=== PATIENT | male | born 1950 | race American Indian/Alaskan Native ===

== ENCOUNTER 2018-11-17 18:23 | Emergency (ER) | payer MEDICAID, MEDICARE ==
[2018-11-17 18:52] VITALS: BP 140/85
--- NOTE | 2018-11-17 19:08 | Emergency Department Report ---
ED General Adult HPI - General Chief complaint: Medical Clearance Stated complaint: MEDICAL CLEARANCE Time Seen by Provider: 11/17/18 18:46 Source: EMS Mode of arrival: Stretcher Limitations: Physical Limitation - History of Present Illness Initial comments: 68 yo M sent from [facility] because pt became angry with staff that they would not let him go outside. NH states pt threw himself out of his wheelchair in protest. Pt states he slid down out of the chair. Denies any injuries. Has no complaints. NH paperwork states pt is altered, however, EMS states pt has been A&O x 3 since they arrived to pick him up. -: This evening Associated Symptoms: denies other symptoms Treatments Prior to Arrival: none - Related Data Allergies Allergy/AdvReac Type Severity Reaction Status Date / Time No Known Allergies Allergy Unverified 05/21/18 18:30 ED Review of Systems ROS: Stated complaint: MEDICAL CLEARANCE Other details as noted in HPI Comment: All other systems reviewed and negative Respiratory: denies: shortness of breath Cardiovascular: denies: chest pain Gastrointestinal: denies: abdominal pain Musculoskeletal: denies: arthralgia Neurological: denies: headache ED Past Medical Hx - Past Medical History Previous Medical History?: Yes Hx Psychiatric Treatment: Yes (Bipolar) Additional medical history: Cirrhosis of liver, BPH, Psoriasis, Vitamin deficiency, ototo - Social History Smoking Status: Never Smoker Substance Use Type: None ED Physical Exam - General Limitations: Physical Limitation General appearance: alert, in no apparent distress - Head Head exam: Present: atraumatic, normocephalic - Eye Eye exam: Present: normal appearance - ENT ENT exam: Present: mucous membranes moist - Neck Neck exam: Present: normal inspection - Respiratory Respiratory exam: Present: normal lung sounds bilaterally. Absent: respiratory distress - Cardiovascular Cardiovascular Exam: Present: regular rate, normal rhythm - GI/Abdominal GI/Abdominal exam: Present: soft. Absent: distended, tenderness - Extremities Exam Extremities exam: Present: normal inspection - Neurological Exam Neurological exam: Present: alert, oriented X3. Absent: CN II-XII intact - Psychiatric Psychiatric exam: Present: normal affect, normal mood - Skin Skin exam: Present: warm, dry, intact, normal color ED Course Vital Signs 11/17/18 18:51 Temperature 97.8 F Pulse Rate 99 H Respiratory 16 Rate Blood Pressure 140/85 [Left] O2 Sat by Pulse 98 Oximetry ED Medical Decision Making - Medical Decision Making 68 yo M sent from [facility] because he became upset when staff would not allow him to go outside. Pt states he just wanted to enjoy the sunshine but they told him that it was too hot. Pt stated he grew up in [place] and is accustomed to hot weather. When EMS arrived, pt was sitting outside, calm, not altered, however, staff still wanted him transported to the ED. Pt has no complaints. He was given a food tray and has been very cooperative and conversational here in ED. No medical emergency present. Will d/c back to [facility]. Critical care attestation.: If time is entered above; I have spent that time in minutes in the direct care of this critically ill patient, excluding procedure time. ED Disposition Clinical Impression: No problem, feared complaint unfounded Disposition: DC-01 TO HOME OR SELFCARE Is pt being admited?: No Condition: Stable Referrals: DANIEL REEVES MD [Referring] - 3-5 Days Time of Disposition: 20:19
== END 2018-11-17 22:27 | disposition home or self-care (01) ==
LOC: ED 18:23
DX: F91.1 Conduct disorder, childhood-onset type (principal)
CPT/HCPCS: 99282

== ENCOUNTER 2019-01-07 21:04 | Emergency (ER) | payer MEDICAID ==
[2019-01-07] MEDS ORDERED: MAXIPIME/NS 2 GM/100 ML 2 GM/100 ML BAG IV ONE (22:16)
[2019-01-07] MEDS ORDERED: NACL 0.9% 1000 ML IV ONE (22:16)
[2019-01-07 23:04] LABS: Basophils % (Auto) 0.2 % (0.0-1.8); Eosinophils # (Auto) 0.1 K/mm3 (0.0-0.4); Eosinophils % (Auto) 0.9 % (0.0-4.3); Hematocrit 34.1 % (35.5-45.6); Hemoglobin 11.2 gm/dl (11.8-15.2); Lymphocytes # (Auto) 1.6 K/mm3 (1.2-5.4); Lymphocytes % (Auto) 21.1 % (13.4-35.0); Mean Corpuscular HGB Conc 33 % (32-34); Mean Corpuscular Volume 81 fl (84-94); Monocytes # (Auto) 1.2 K/mm3 (0.0-0.8); Platelet Count 160 K/mm3 (140-440); Red Blood Count 4.19 M/mm3 (3.65-5.03); Red Cell Distribution Width 14.6 % (13.2-15.2)
[2019-01-07 23:21] LABS: Alanine Aminotransferase 11 units/L (7-56); Albumin 3.5 g/dL (3.9-5); BUN/Creatinine Ratio 20; Blood Urea Nitrogen 24 mg/dL (9-20); Calcium 9.4 mg/dL (8.4-10.2); Hemolysis Index 0
--- NOTE | 2019-01-07 23:42 | XRay Report ---
CHEST 1 VIEW INDICATION / CLINICAL INFORMATION: labored breathing. COMPARISON: None available. FINDINGS: SUPPORT DEVICES: None. HEART / MEDIASTINUM: Heart size is normal with left ventricular configuration. LUNGS / PLEURA: No significant pulmonary or pleural abnormality. No pneumothorax. ADDITIONAL FINDINGS: Calcified granulomata are demonstrated in both lungs and ken. IMPRESSION: 1. No acute findings. Signer Name: Moncho Fitch MD Signed: 01/07/2019 11:38 PM Workstation Name: [id number]
--- NOTE | 2019-01-07 23:48 | Emergency Department Report ---
ED General Adult HPI - General Chief complaint: Fever Stated complaint: LETHARGIC Time Seen by Provider: 01/07/19 22:12 Source: EMS Mode of arrival: Stretcher Limitations: No Limitations - History of Present Illness Initial comments: Patient is a 68-year-old male who is presented from [facility] with some lethargy fever late breathing. Patient's denies any cough congestion or pain. Associated Symptoms: diaphoresis, fever/chills. denies: confusion, chest pain, cough, headaches, loss of appetite, malaise, nausea/vomiting, rash, seizure, shortness of breath, syncope - Related Data Previous Rx's Medication Instructions Recorded Last Taken Type levoFLOXacin [Levaquin TAB] 500 mg PO QDAY #10 tablet 01/08/19 Unknown Rx Allergies Allergy/AdvReac Type Severity Reaction Status Date / Time No Known Allergies Allergy Unverified 05/21/18 18:30 ED Review of Systems ROS: Stated complaint: LETHARGIC Other details as noted in HPI Comment: All other systems reviewed and negative ED Past Medical Hx - Past Medical History Previous Medical History?: Yes Hx Psychiatric Treatment: Yes (Bipolar) Additional medical history: Cirrhosis of liver, BPH, Psoriasis, Vitamin deficiency, ototo - Social History Smoking Status: Never Smoker Substance Use Type: None - Medications Home Medications: Home Medications Medication Instructions Recorded Confirmed Last Taken Type levoFLOXacin [Levaquin TAB] 500 mg PO QDAY #10 tablet 01/08/19 Unknown Rx ED Physical Exam - General Limitations: No Limitations General appearance: alert, in no apparent distress - Head Head exam: Present: atraumatic, normocephalic - Eye Eye exam: Present: normal appearance - ENT ENT exam: Present: mucous membranes moist - Neck Neck exam: Present: normal inspection - Respiratory Respiratory exam: Present: normal lung sounds bilaterally. Absent: respiratory distress, wheezes, rales, rhonchi - Cardiovascular Cardiovascular Exam: Present: regular rate, normal rhythm, normal heart sounds. Absent: systolic murmur, diastolic murmur, rubs, gallop - GI/Abdominal GI/Abdominal exam: Present: soft, normal bowel sounds. Absent: distended, tenderness, rebound - Rectal Rectal exam: Present: deferred - Extremities Exam Extremities exam: Present: normal inspection - Back Exam Back exam: Present: normal inspection - Neurological Exam Neurological exam: Present: alert, oriented X3 - Psychiatric Psychiatric exam: Present: normal affect, normal mood - Skin Skin exam: Present: warm, dry, intact, normal color. Absent: rash ED Course Vital Signs 01/07/19 01/07/19 01/07/19 22:03 22:16 22:30 Temperature 101.3 F H Pulse Rate 110 H 110 H Respiratory 25 H 23 Rate Blood Pressure 128/68 120/78 Blood Pressure 128/68 [Left] O2 Sat by Pulse 98 99 98 Oximetry 01/07/19 01/07/19 01/07/19 22:46 23:16 23:46 Temperature Pulse Rate 103 H 111 H 111 H Respiratory 18 26 H 17 Rate Blood Pressure 120/78 136/97 136/97 Blood Pressure [Left] O2 Sat by Pulse 100 98 100 Oximetry 01/08/19 01/08/19 01/08/19 00:00 00:16 00:46 Temperature Pulse Rate 113 H 110 H Respiratory 23 22 22 Rate Blood Pressure 145/77 145/77 145/77 Blood Pressure [Left] O2 Sat by Pulse 99 95 99 Oximetry 01/08/19 01/08/19 01/08/19 01:00 01:30 01:46 Temperature Pulse Rate 109 H 110 H 108 H Respiratory 19 19 19 Rate Blood Pressure 144/83 128/77 144/83 Blood Pressure [Left] O2 Sat by Pulse 93 98 98 Oximetry 01/08/19 02:16 Temperature Pulse Rate 108 H Respiratory 22 Rate Blood Pressure 156/85 Blood Pressure [Left] O2 Sat by Pulse 99 Oximetry ED Medical Decision Making - Lab Data Result diagrams: 01/07/19 22:43 01/07/19 22:43 Lab Results 01/07/19 01/07/19 01/07/19 Range/Units 22:43 22:43 22:43 WBC 7.3 (4.5-11.0) K/mm3 RBC 4.19 (3.65-5.03) M/mm3 Hgb 11.2 L (11.8-15.2) gm/dl Hct 34.1 L (35.5-45.6) % MCV 81 L (84-94) fl MCH 27 L (28-32) pg MCHC 33 (32-34) % RDW 14.6 (13.2-15.2) % Plt Count 160 (140-440) K/mm3 Lymph % (Auto) 21.1 (13.4-35.0) % [place] % (Auto) 16.0 H (0.0-7.3) % Eos % (Auto) 0.9 (0.0-4.3) % Baso % (Auto) 0.2 (0.0-1.8) % Lymph # 1.6 (1.2-5.4) K/mm3 [place] # 1.2 H (0.0-0.8) K/mm3 Eos # 0.1 (0.0-0.4) K/mm3 Baso # 0.0 (0.0-0.1) K/mm3 Seg Neutrophils % 61.8 (40.0-70.0) % Seg Neutrophils # 4.5 (1.8-7.7) K/mm3 Sodium 141 (137-145) mmol/L Potassium 4.4 (3.6-5.0) mmol/L Chloride 107.3 H (98-107) mmol/L Carbon Dioxide 25 (22-30) mmol/L Anion Gap 13 mmol/L BUN 24 H (9-20) mg/dL Creatinine 1.2 (0.8-1.5) mg/dL Estimated GFR > 60 ml/min BUN/Creatinine Ratio 20 % Glucose 106 H (75-100) mg/dL Lactic Acid 0.90 (0.7-2.0) mmol/L Calcium 9.4 (8.4-10.2) mg/dL Total Bilirubin 0.20 (0.1-1.2) mg/dL AST 17 (5-40) units/L ALT 11 (7-56) units/L Alkaline Phosphatase 87 (35-129) units/L Total Protein 8.9 H (6.3-8.2) g/dL Albumin 3.5 L (3.9-5) g/dL Albumin/Globulin Ratio 0.6 % Urine Color (Yellow) Urine Turbidity (Clear) Urine pH (5.0-7.0) Ur Specific S[place] (1.003-1.030) Urine Protein (Negative) mg/dL Urine Glucose (UA) (Negative) mg/dL Urine Ketones (Negative) mg/dL Urine Blood (Negative) Urine Nitrite (Negative) Urine Bilirubin (Negative) Urine Urobilinogen (<2.0) mg/dL Ur Leukocyte Esterase (Negative) Urine WBC (Auto) (0.0-6.0) /HPF Urine RBC (Auto) (0.0-6.0) /HPF U Epithel Cells (Auto) (0-13.0) /HPF Urine WBC Clumps /HPF 01/08/19 01/08/19 Range/Units 00:34 01:24 WBC (4.5-11.0) K/mm3 RBC (3.65-5.03) M/mm3 Hgb (11.8-15.2) gm/dl Hct (35.5-45.6) % MCV (84-94) fl MCH (28-32) pg MCHC (32-34) % RDW (13.2-15.2) % Plt Count (140-440) K/mm3 Lymph % (Auto) (13.4-35.0) % [place] % (Auto) (0.0-7.3) % Eos % (Auto) (0.0-4.3) % Baso % (Auto) (0.0-1.8) % Lymph # (1.2-5.4) K/mm3 [place] # (0.0-0.8) K/mm3 Eos # (0.0-0.4) K/mm3 Baso # (0.0-0.1) K/mm3 Seg Neutrophils % (40.0-70.0) % Seg Neutrophils # (1.8-7.7) K/mm3 Sodium (137-145) mmol/L Potassium (3.6-5.0) mmol/L Chloride (98-107) mmol/L Carbon Dioxide (22-30) mmol/L Anion Gap mmol/L BUN (9-20) mg/dL Creatinine (0.8-1.5) mg/dL Estimated GFR ml/min BUN/Creatinine Ratio % Glucose (75-100) mg/dL Lactic Acid 0.80 (0.7-2.0) mmol/L Calcium (8.4-10.2) mg/dL Total Bilirubin (0.1-1.2) mg/dL AST (5-40) units/L ALT (7-56) units/L Alkaline Phosphatase (35-129) units/L Total Protein (6.3-8.2) g/dL Albumin (3.9-5) g/dL Albumin/Globulin Ratio % Urine Color Yellow (Yellow) Urine Turbidity Cloudy (Clear) Urine pH 7.0 (5.0-7.0) Ur Specific Satin 1.008 (1.003-1.030) Urine Protein <15 mg/dl (Negative) mg/dL Urine Glucose (UA) Neg (Negative) mg/dL Urine Ketones Neg (Negative) mg/dL Urine Blood Mod (Negative) Urine Nitrite Neg (Negative) Urine Bilirubin Neg (Negative) Urine Urobilinogen < 2.0 (<2.0) mg/dL Ur Leukocyte Esterase Lg (Negative) Urine WBC (Auto) < 1.0 (0.0-6.0) /HPF Urine RBC (Auto) 20.0 (0.0-6.0) /HPF U Epithel Cells (Auto) 1.0 (0-13.0) /HPF Urine WBC Clumps 3+ /HPF - Radiology Data [facility] [address] [place] [address] XRay Report Signed Patient: ISAAC BASS MR#: [id number] 9 : 1950 Acct:[id number] Age/Sex: 68 / M ADM Date: 01/07/19 Loc: ED Attending Dr: Ordering Physician: RYLIE JURADO MD Date of Service: 01/07/19 Procedure(s): XR chest 1V ap Accession Number(s): [id number] cc: RYLIE JURADO MD Fluoro Time In Minutes: CHEST 1 VIEW INDICATION / CLINICAL INFORMATION: labored breathing. COMPARISON: None available. FINDINGS: SUPPORT DEVICES: None. HEART / MEDIASTINUM: Heart size is normal with left ventricular configuration. LUNGS / PLEURA: No significant pulmonary or pleural abnormality. No pneumothorax. ADDITIONAL FINDINGS: Calcified granulomata are demonstrated in both lungs and ken. IMPRESSION: 1. No acute findings. Signer Name: Moncho Fitch MD Signed: 01/07/2019 11:38 PM Workstation Name: [id number] Transcribed By: ARYAN Dictated By: Moncho Fitch MD Electronically Authenticated By: Moncho Fitch MD Signed Date/Time: 01/07/192337 DD/ 36 TD/TT: - Medical Decision Making Patient's does show evidence of UTI on his urinalysis. Patient to be started on Levaquin and discharged. Patient after fever was treated is much more energetic and states he would like to be discharged. Critical care attestation.: If time is entered above; I have spent that time in minutes in the direct care of this critically ill patient, excluding procedure time. ED Disposition Clinical Impression: UTI (urinary tract infection) Qualifiers: Urinary tract infection type: acute cystitis Hematuria presence: without hematuria Qualified Code(s): N30.00 - Acute cystitis without hematuria Disposition: TO HOME OR SELFCARE Is pt being admited?: No Does the pt Need Aspirin: No Condition: Stable Instructions: Urinary Tract Infection in Men (ED) Referrals: DANIEL REEVES MD [Primary Care Provider] - 3-5 Days Time of Disposition: 02:43
[2019-01-08 01:34] LABS: Bilirubin,Urine NEG (Negative); Blood,Urine MOD (Negative); Color,Urine Yellow (Yellow); Protein,Urine <15 mg/dL mg/dL (Negative); Urobilinogen,Urine < 2.0 mg/dL (<2.0)
[2019-01-08 01:36] LABS: WBC,Urine < 1.0 /HPF (0.0-6.0)
[2019-01-08] MEDS ORDERED: LEVAQUIN PO ONE (02:10)
[2019-01-08 10:28] VITALS: BP 145/84
== END 2019-01-08 10:55 | disposition home or self-care (01) ==
LOC: ED 21:04
DX: N39.0 Urinary tract infection, site not specified (principal); F31.9 Bipolar disorder, unspecified; Z98.890 Other specified postprocedural states; Z79.899 Other long term (current) drug therapy
CPT/HCPCS: 36415; 71045; 80053; 81001; 82140; 85025; 87040; 96365; 99284; J0692; J7030

== ENCOUNTER 2019-02-24 17:46 | Inpatient (IN) | payer MEDICARE ==
[2019-02-25] MEDS: MACROBID PO SCH ×3 (01:38→22:36)
[2019-02-25] MEDS: MELATONIN PO SCH ×2 (01:39→22:00)
[2019-02-25] MEDS: LEVAQUIN PO SCH (10:04)
--- NOTE | 2019-02-25 12:33 | History and Physical Report ---
GP History & Physical - History of Present Illness Date of admission: 02/24/19 Reason for Admission: Danger to others, Unable to care for self Chief Complaint: I don't know why I am here History of Present Illness: The patient is a 69-year-old AAM with history of Bipolar disorder, Vascular dementia and multiple medical problems including chronic pain, history of stroke and ?cirrhosis. He was admitted via our ED from [facility] for evaluation and treatment of aggressive behavior. The skilled nursing staff reports that he has been making lewd and sexually explicit comments while at the skilled nursing. He is irritable this morning, refusing to take the antibiotics that was started yesterday for UTI. He reports that his mood is ok, denies SI/HI/AVH Legal Status: Voluntary Patient Problems: Current Active Problems Delirium due to another medical condition (Acute) Dementia with behavioral disturbance (Acute) Reaction to Hospitalization: Accepting Substance History - Substance History Drug Use: none Hx Tobacco Use: No Alcohol Use: No Past psychiatric history - Past Medical History Past Medical History: CAD, liver disease - past Psychiatric treatment and history Psych: Bipolar - Social History Social history: single (Lives in a NH, disabled, has GED. No legal prblems nad no access to guns) Review of Systems All systems: negative Psychiatric: irritability Results - Results Labs/Vitals: Last Vital Signs Temp 98.3 F 02/24/19 23:12 Pulse 114 H 02/24/19 23:13 Resp 16 02/24/19 23:12 BP 135/84 02/24/19 23:12 Pulse Ox 99 02/24/19 23:13 Physical Examination - Constitutional Vitals: Vital Signs Temp Pulse Resp BP Pulse Ox 98.3 F 114 H 16 135/84 99 02/24/19 23:12 02/24/19 23:13 02/24/19 23:12 02/24/19 23:12 02/24/19 23:13 Temperature -Last 24 Hours Temperature 98.3 F General appearance: Present: no acute distress - EENT Eyes: Present: PERRL, EOM intact ENT: hearing intact, clear oral mucosa - Neck Neck: Present: supple, normal ROM - Respiratory Respiratory effort: normal Mental Status Exam - Vital signs Last Vital Signs Temp 98.3 F 02/24/19 23:12 Pulse 114 H 02/24/19 23:13 Resp 16 02/24/19 23:12 BP 135/84 02/24/19 23:12 Pulse Ox 99 02/24/19 23:13 - Exam Orientation: time, place, person Affect: normal Mood: congruent with affect Thought Process: Intact Perceptions: none Speech: normal rate and pattern Concentration: focused Motor activity: normal Level of consciousness: alert Memory: Intact Interaction: irritable Mini mental status exam(if necessary): 24-30 Assessment and Plan - Psychiatric problem (1) Delirium due to another medical condition Current Visit: Yes Status: Acute plan to address problem: Due to the psychiatric conditions and required monitoring - the patient requires continued hospitalization. Will continue inpatient treatment to allow for medication adjustment and monitoring. Will continue q15 min safety checks. Will encourage the use of environmental modifications and non-pharmacologic approaches for the management of behavioral and psychological symptoms. Will continue current psych medications Monitor for medication side effects. The patient will continue on medications for physical illnesses, and these will be closely monitored by the Hospitalist Continue intensive physical and occupational therapies. Monitor patient's mood, sleep, appetite, and behavior closely. Encourage patient to participate in individual and group therapeutic sessions on the [place]. Will provide a safe and therapeutic environment for patient.. Estimated length of stay 5 - 7 days (2) Aggressive behavior Current Visit: No Status: Acute (3) Pyuria Current Visit: No Status: Acute (4) Dementia with behavioral disturbance Current Visit: Yes Status: Acute Physician Certification - Certification Statement Physician Certification Statement: This is an acknowledgement statement that ISAAC BASS is a 69 year old M who requires inpatient psychiatric admission for treatment which could reasonably be expected to improve the patient's condition for Dementia with delirium, Dementia with behavioral disturbance Estimated period of time patient will need to remain in the hospital: 7 days Plan for post-hospital care: out-patient care
[2019-02-26 07:52] LABS: Chol/HDL Ratio 2.36 %
[2019-02-26] MEDS: LEVAQUIN PO SCH (09:28)
[2019-02-26] MEDS: MACROBID PO SCH ×2 (09:28→21:03)
--- NOTE | 2019-02-26 15:02 | Consultation ---
History of Present Illness - Reason for Consult Consult date: 02/26/19 - History of Present Illness The patient is a 69-year-old AAM with history of Bipolar disorder, Vascular dementia and multiple medical problems including chronic pain, history of stroke and ?cirrhosis. He was admitted via our ED from [facility] for evaluation and treatment of aggressive behavior. The shelter staff reports that he has been making lewd and sexually explicit comments while at the shelter. Patient was noted to have a UTI we'll start antibiotics. Past History Past Medical History: CAD, liver disease Social history: single (Lives in a NH, disabled, has GED. No legal prblems nad no access to guns) Medications and Allergies Allergies Allergy/AdvReac Type Severity Reaction Status Date / Time No Known Allergies Allergy Unverified 05/21/18 18:30 Home Medications Medication Instructions Recorded Confirmed Last Taken Type levoFLOXacin [Levaquin TAB] 500 mg PO QDAY #10 tablet 01/08/19 02/25/19 Unknown Rx Nitrofurantoin [place]/M-Cryst 100 mg PO Q12HR #14 capsule 02/24/19 02/25/19 Unknown Rx [Macrobid CAP] Active Meds: Active Medications Haloperidol Lactate (Haldol) 5 mg IM Q6H PRN PRN Reason: Agitation Levofloxacin (Levaquin) 500 mg PO QDAY [facility] Last Admin: 02/26/19 09:28 Dose: 500 mg Documented by: Lorazepam (Ativan) 1 mg IM Q6H PRN PRN Reason: Agitation Melatonin (Melatonin) 5 mg PO QHS [facility] Last Admin: 02/25/19 22:00 Dose: 5 mg Documented by: Nitrofurantoin Macrocrystals (Macrobid) 100 mg PO Q12HR [facility] Last Admin: 02/26/19 09:28 Dose: 100 mg Documented by: Trazodone HCl (Desyrel) 50 mg PO QHS PRN PRN Reason: Insomnia Review of Systems All systems: negative Exam - Constitutional Vitals: Temp Pulse Resp BP Pulse Ox 98.6 F 114 H 18 97/60 99 02/25/19 08:52 02/25/19 20:36 02/25/19 20:36 02/25/19 08:52 02/25/19 08:52 General appearance: Present: no acute distress, well-nourished - EENT Eyes: Present: PERRL ENT: hearing intact, clear oral mucosa - Neck Neck: Present: supple, normal ROM - Respiratory Respiratory effort: normal Respiratory: bilateral: CTA - Cardiovascular Heart Sounds: Present: S1 & S2. Absent: rub, click - Extremities Extremities: pulses symmetrical, No edema Peripheral Pulses: within normal limits - Abdominal General gastrointestinal: Present: soft, non-tender, non-distended, normal bowel sounds Male genitourinary: Present: normal - Integumentary Integumentary: Present: clear, warm, dry - Musculoskeletal Musculoskeletal: gait normal, strength equal bilaterally - Psychiatric Psychiatric: appropriate mood/affect, intact judgment & insight - Neurologic Neurologic: CNII-XII intact, moves all extremities Assessment and Plan Toxic metabolic encephalopathy. Antibiotics and treat underlying causes. UTI. Continue antibiotics. Follow-up UA and CBC Dementia with behavioral disturbance. Patient apparently has some aggressive behavior. Continue with supportive care and treatment per psychiatry.
[2019-02-26] MEDS: MELATONIN PO SCH (21:03)
--- NOTE | 2019-02-26 21:30 | Progress Note ---
Subjective Date of service: 02/26/19 Principal diagnosis: Dementia with behavioral disturbance Subjective Comment: Patient is calm and pleasnt this morning. He denies SI/HI/AVH/Paranoia. He is compliant with meds and cooperative with cares. Objective - Criteria for Continued Treatment Criteria for Continued Treatment: Improving Level of Functioning - Objective Observation Participation Level: Moderate Assessment and Plan - Patient Problems (1) Delirium due to another medical condition Current Visit: Yes Status: Acute Plan to address problem: Due to the psychiatric conditions and required monitoring - the patient requires continued hospitalization. Will continue inpatient treatment to allow for medication adjustment and monitoring. Will continue q15 min safety checks. Will encourage the use of environmental modifications and non-pharmacologic approaches for the management of behavioral and psychological symptoms. Will continue current psych medications Monitor for medication side effects. The patient will continue on medications for physical illnesses, and these will be closely monitored by the Hospitalist Continue intensive physical and occupational therapies. Monitor patient's mood, sleep, appetite, and behavior closely. Encourage patient to participate in individual and group therapeutic sessions on the [place]cor[place]. Will provide a safe and therapeutic environment for patient.. Estimated length of stay 5 - 7 days (2) Aggressive behavior Current Visit: No Status: Inactive (3) Pyuria Current Visit: No Status: Inactive (4) Dementia with behavioral disturbance Current Visit: Yes Status: Acute Mental Status Exam - Vital signs Last Vital Signs Temp 98.0 F 02/27/19 09:22 Pulse 87 02/26/19 19:53 Resp 16 02/27/19 09:22 BP 115/69 02/27/19 09:22 Pulse Ox 97 02/26/19 19:53 - Exam Orientation: person Affect: normal Mood: congruent with affect Thought Process: Disoriented Perceptions: none Speech: normal rate and pattern Concentration: focused Motor activity: normal Level of consciousness: alert, confused Memory: Recent Impaired, Remote Impaired Interaction: cooperative
[2019-02-27] MEDS: DESYREL PO PRN (00:39)
[2019-02-27] MEDS: HALDOL IM PRN ×3 (00:48→18:30)
[2019-02-27 00:49] LABS: Bilirubin,Urine NEG (Negative); Blood,Urine SM (Negative); Color,Urine Yellow (Yellow); Mucus,Urine FEW /HPF; Urobilinogen,Urine < 2.0 mg/dL (<2.0)
[2019-02-27 00:52] LABS: WBC,Urine > 182.0 /HPF (0.0-6.0)
[2019-02-27] MEDS: ATIVAN IM PRN ×2 (02:01→08:27)
[2019-02-27 08:42] LABS: BUN/Creatinine Ratio 15; Blood Urea Nitrogen 16 mg/dL (9-20); Calcium 9.9 mg/dL (8.4-10.2); Hemolysis Index 1
[2019-02-27 08:49] LABS: Basophils % (Auto) 0.1 % (0.0-1.8); Eosinophils # (Auto) 0.1 K/mm3 (0.0-0.4); Eosinophils % (Auto) 2.4 % (0.0-4.3); Hematocrit 37.4 % (35.5-45.6); Lymphocytes # (Auto) 2.4 K/mm3 (1.2-5.4); Mean Corpuscular HGB Conc 32 % (32-34); Mean Corpuscular Volume 81 fl (84-94); Monocytes # (Auto) 0.8 K/mm3 (0.0-0.8); Monocytes % (Auto) 14.2 % (0.0-7.3); Platelet Count 194 K/mm3 (140-440); Red Blood Count 4.62 M/mm3 (3.65-5.03); Red Cell Distribution Width 16.4 % (13.2-15.2)
[2019-02-27] MEDS: BENADRYL IM PRN ×2 (09:29→18:29)
[2019-02-27] MEDS ORDERED: ATIVAN IM ONE (09:30)
[2019-02-27] MEDS: MACROBID PO SCH ×5 (12:01→23:17)
[2019-02-27] MEDS: LEVAQUIN PO SCH ×3 (12:01→17:27)
[2019-02-27] MEDS ORDERED: ATIVAN IM PRN ×2 (12:28→20:23)
--- NOTE | 2019-02-27 20:18 | Progress Note ---
Subjective Date of service: 02/27/19 Principal diagnosis: Dementia with behavioral disturbance Subjective Comment: Patient is agitated, disruptive and very aggressive today. He is uncooperative with cares and refuses to take medications. Objective - Criteria for Continued Treatment Criteria for Continued Treatment: Improving Level of Functioning, Stablizing Level of Functioning, Improving Emotional/Socia - Objective Observation Participation Level: Minimal Assessment and Plan - Patient Problems (1) Delirium due to another medical condition Current Visit: Yes Status: Acute Plan to address problem: Due to the psychiatric conditions and required monitoring - the patient requires continued hospitalization. Will continue inpatient treatment to allow for medication adjustment and monitoring. Will continue q15 min safety checks. Will encourage the use of environmental modifications and non-pharmacologic approaches for the management of behavioral and psychological symptoms. Monitor for medication side effects. The patient will continue on medications for physical illnesses, and these will be closely monitored by the Hospitalist Continue intensive physical and occupational therapies. Monitor patient's mood, sleep, appetite, and behavior closely. Encourage patient to participate in individual and group therapeutic sessions on the [place]. Will provide a safe and therapeutic environment for patient. Will start Risperidone 0.5mg bid for delirium, psychosis and agitation Will add Remeron 15mg qhs to help with moo, sleep and appetite (2) Aggressive behavior Current Visit: No Status: Inactive (3) Pyuria Current Visit: No Status: Inactive (4) Dementia with behavioral disturbance Current Visit: Yes Status: Acute Mental Status Exam - Vital signs Last Vital Signs Temp 98.0 F 02/27/19 09:22 Pulse 87 02/26/19 19:53 Resp 16 02/27/19 09:22 BP 115/69 02/27/19 09:22 Pulse Ox 97 02/26/19 19:53 - Exam Orientation: person Affect: agitated Mood: congruent with affect Thought content: paranoia Thought Process: Disorganized, Disoriented Perceptions: none Speech: normal rate and pattern Concentration: distractible Motor activity: agitated Level of consciousness: alert Memory: Recent Impaired, Remote Impaired Sleep Symptoms: Difficulty Falling Asleep Interaction: hostile, irritable, uncooperative Medications & Allergies - Medications Allergies/Adverse Reactions: Allergies No Known Allergies Allergy (Unverified 05/21/18 18:30) Home Medications: Home Medications Medication Instructions Recorded Confirmed Last Taken Type levoFLOXacin [Levaquin TAB] 500 mg PO QDAY #10 tablet 01/08/19 02/25/19 Unknown Rx Nitrofurantoin [place]/M-Cryst 100 mg PO Q12HR #14 capsule 02/24/19 02/25/19 Unknown Rx [Macrobid CAP] Active Medications: Generic Name Dose Route Start Last Admin Trade Name Freq PRN Reason Stop Dose Admin Diphenhydramine HCl 50 mg 02/27/19 09:30 02/27/19 18:29 Benadryl IM 50 mg Q6H PRN Administration agitation Haloperidol Lactate 5 mg 02/24/19 18:11 02/27/19 18:30 Haldol IM 5 mg Q6H PRN Administration Agitation Levofloxacin 500 mg 02/25/19 10:00 02/27/19 17:27 Levaquin PO 03/01/19 10:01 500 mg QDAY IRINA Administration Lorazepam 1 mg 02/27/19 12:28 02/27/19 18:29 Ativan IM 1 mg Q6H PRN Administration Agitation Melatonin 5 mg 02/24/19 22:00 02/26/19 21:03 Melatonin PO 5 mg QHS IRINA Administration Nitrofurantoin Macrocrystals 100 mg 02/24/19 22:00 02/27/19 17:26 Macrobid PO 03/03/19 10:01 100 mg Q12HR IRINA Administration Trazodone HCl 50 mg 02/24/19 18:12 Desyrel PO QHS PRN Insomnia
[2019-02-27] MEDS ORDERED: WATER FOR INJ Sterile (PF) 10 ML ONE (21:18)
[2019-02-27] MEDS ORDERED: GEODON IM ONE (21:23)
[2019-02-27] MEDS ORDERED: RisperDAL PO SCH (22:00)
[2019-02-27] MEDS: MELATONIN PO SCH (23:17)
[2019-02-27] MEDS: REMERON SOLUTAB PO SCH (23:18)
[2019-02-28] MEDS: HALDOL IM PRN ×2 (01:01→22:55)
[2019-02-28] MEDS: BENADRYL IM PRN ×2 (01:02→22:55)
--- NOTE | 2019-02-28 08:22 | Progress Note ---
Subjective Date of service: 02/28/19 Principal diagnosis: Dementia with behavioral disturbance Subjective Comment: Patient was very agitated, disruptive and extremely aggressive last night. He was given multiple PRNs with minimal improvement. He is uncooperative with cares and refuses to take medications. He only slept 3 hours last night. He is calm this morning and promises to be of good behavior. He denies SI/HI/AVH/Paranoia. Objective - Criteria for Continued Treatment Criteria for Continued Treatment: Improving Level of Functioning, Stablizing Level of Functioning, Improving Emotional/Socia - Objective Observation Participation Level: Minimal Reason(s) For Not Participating: Unable Assessment and Plan - Patient Problems (1) Delirium due to another medical condition Current Visit: Yes Status: Acute Plan to address problem: Due to the psychiatric conditions and required monitoring - the patient requires continued hospitalization. Will continue inpatient treatment to allow for medication adjustment and monit oring. Will continue q15 min safety checks. Will encourage the use of environmental modifications and non-pharmacologic approaches for the management of behavioral and psychological symptoms. Monitor for medication side effects. The patient will continue on medications for physical illnesses, and these will be closely monitored by the Hospitalist Continue intensive physical and occupational therapies. Monitor patient's mood, sleep, appetite, and behavior closely. Encourage patient to participate in individual and group therapeutic sessions on the [place]. Will provide a safe and therapeutic environment for patient. Will start Risperidone 0.5mg bid for delirium, psychosis and agitation Will add Remeron 15mg qhs to help with moo, sleep and appetite (2) Aggressive behavior Current Visit: No Status: Inactive (3) Pyuria Current Visit: No Status: Inactive (4) Dementia with behavioral disturbance Current Visit: Yes Status: Acute Medications & Allergies - Medications Allergies/Adverse Reactions: Allergies No Known Allergies Allergy (Unverified 05/21/18 18:30) Home Medications: Home Medications Medication Instructions Recorded Confirmed Last Taken Type levoFLOXacin [Levaquin TAB] 500 mg PO QDAY #10 tablet 01/08/19 02/25/19 Unknown Rx Nitrofurantoin [place]/M-Cryst 100 mg PO Q12HR #14 capsule 02/24/19 02/25/19 Unknown Rx [Macrobid CAP] Active Medications: Generic Name Dose Route Start Last Admin Trade Name Freq PRN Reason Stop Dose Admin Diphenhydramine HCl 50 mg 02/27/19 09:30 02/28/19 01:02 Benadryl IM 50 mg Q6H PRN Administration agitation Haloperidol Lactate 5 mg 02/24/19 18:11 02/28/19 01:01 Haldol IM 5 mg Q6H PRN Administration Agitation Levofloxacin 500 mg 02/25/19 10:00 02/27/19 17:27 Levaquin PO 03/01/19 10:01 500 mg QDAY IRINA Administration Lorazepam 2 mg 02/27/19 20:23 02/28/19 01:01 Ativan IM 2 mg Q6H PRN Administration Agitation Melatonin 5 mg 02/24/19 22:00 02/27/19 23:17 Melatonin PO Not Given QHS IRINA Mirtazapine 15 mg 02/27/19 22:00 02/27/19 23:18 Remeron Solutab PO Not Given QHS IRINA Nitrofurantoin Macrocrystals 100 mg 02/24/19 22:00 02/27/19 23:17 Macrobid PO 03/03/19 10:01 Not Given Q12HR IRINA Risperidone 0.5 mg 02/27/19 22:00 02/28/19 01:32 Risperdal PO Not Given BID IRINA Trazodone HCl 50 mg 02/24/19 18:12 Desyrel PO QHS PRN Insomnia Mental Status Exam - Vital signs Last Vital Signs Temp 98.0 F 02/27/19 09:22 Pulse 87 02/26/19 19:53 Resp 16 02/27/19 09:22 BP 115/69 02/27/19 09:22 Pulse Ox 97 02/26/19 19:53 - Exam Orientation: place, person Affect: normal Mood: calm Thought Process: Disoriented Perceptions: none Speech: normal rate and pattern Concentration: focused Motor activity: normal Level of consciousness: alert Memory: Recent Impaired, Remote Impaired Sleep Symptoms: Insomnia Interaction: cooperative
[2019-02-28] MEDS ORDERED: RisperDAL PO SCH ×2 (08:28)
[2019-02-28] MEDS: MACROBID PO SCH ×2 (10:04→21:40)
[2019-02-28] MEDS: LEVAQUIN PO SCH (10:05)
[2019-02-28] MEDS: RisperDAL PO SCH ×2 (10:05→21:40)
[2019-02-28] MEDS: REMERON SOLUTAB PO SCH (21:40)
[2019-02-28] MEDS: MELATONIN PO SCH (21:40)
[2019-03-01] MEDS: MACROBID PO SCH ×2 (09:06→21:07)
[2019-03-01] MEDS: LEVAQUIN PO SCH (09:07)
[2019-03-01] MEDS: RisperDAL PO SCH ×2 (09:07→21:07)
[2019-03-01] MEDS: REMERON SOLUTAB PO SCH (21:06)
[2019-03-01] MEDS: MELATONIN PO SCH (21:07)
[2019-03-01] MEDS: DESYREL PO PRN (23:13)
--- NOTE | 2019-03-02 07:55 | Progress Note ---
Subjective Date of service: 03/01/19 Principal diagnosis: Dementia with behavioral disturbance Subjective Comment: Patient continues to be agitated, disruptive and extremely aggressive. Requires PRNs and security personnel He is uncooperative with cares and refuses to take medications. He denies SI/HI/AVH/Paranoia. Orientation: place, person Affect: normal Mood: calm Thought Process: Disoriented Perceptions: none Speech: normal rate and pattern Concentration: focused Motor activity: normal Level of consciousness: alert Memory: Recent Impaired, Remote Impaired Sleep Symptoms: Insomnia Interaction: cooperative Objective - Criteria for Continued Treatment Criteria for Continued Treatment: Improving Level of Functioning, Stablizing Level of Functioning, Improving Emotional/Socia, Decreasing Frequency of Hospitalization - Objective Observation Participation Level: Moderate Assessment and Plan - Patient Problems (1) Delirium due to another medical condition Current Visit: Yes Status: Acute Plan to address problem: Due to the psychiatric conditions and required monitoring - the patient requires continued hospitalization. Will continue inpatient treatment to allow for medication adjustment and monitoring. Will continue q15 min safety checks. Will encourage the use of environmental modifications and non-pharmacologic approaches for the management of behavioral and psychological symptoms. Monitor for medication side effects. The patient will continue on medications for physical illnesses, and these will be closely monitored by the Hospitalist Continue intensive physical and occupational therapies. Monitor patient's mood, sleep, appetite, and behavior closely. Encourage patient to participate in individual and group therapeutic sessions on the [place]. Will provide a safe and therapeutic environment for patient. Will increase Risperidone to 1mg bid for delirium, psychosis and agitation Will continue Remeron 15mg qhs to help with mood, sleep and appetite (2) Aggressive behavior Current Visit: No Status: Inactive (3) Pyuria Current Visit: No Status: Inactive (4) Dementia with behavioral disturbance Current Visit: Yes Status: Acute Medications & Allergies - Medications Allergies/Adverse Reactions: Allergies No Known Allergies Allergy (Unverified 05/21/18 18:30) Home Medications: Home Medications Medication Instructions Recorded Confirmed Last Taken Type levoFLOXacin [Levaquin TAB] 500 mg PO QDAY #10 tablet 01/08/19 02/25/19 Unknown Rx Nitrofurantoin [place]/M-Cryst 100 mg PO Q12HR #14 capsule 02/24/19 02/25/19 Unknown Rx [Macrobid CAP] Active Medications: Generic Name Dose Route Start Last Admin Trade Name Freq PRN Reason Stop Dose Admin Diphenhydramine HCl 50 mg 02/27/19 09:30 02/28/19 22:55 Benadryl IM 50 mg Q6H PRN Administration agitation Divalproex Sodium 250 mg 02/28/19 14:00 03/01/19 21:[address] PO 250 mg TID IRINA Administration Haloperidol Lactate 5 mg 02/24/19 18:11 02/28/19 22:55 Haldol IM 5 mg Q6H PRN Administration Agitation Lorazepam 2 mg 02/27/19 20:23 02/28/19 01:01 Ativan IM 2 mg Q6H PRN Administration Agitation Melatonin 5 mg 02/24/19 22:00 03/01/19 21:07 Melatonin PO 5 mg QHS IRINA Administration Mirtazapine 15 mg 02/27/19 22:00 03/01/19 21:06 Remeron Solutab PO 15 mg QHS IRINA Administration Nitrofurantoin Macrocrystals 100 mg 02/24/19 22:00 03/01/19 21:07 Macrobid PO 03/03/19 10:01 100 mg Q12HR IRINA Administration Risperidone 1 mg 02/28/19 08:45 03/01/19 21:07 Risperdal PO 1 mg BID IRINA Administration Trazodone HCl 50 mg 02/24/19 18:12 03/01/19 23:13 Desyrel PO 50 mg QHS PRN Administration Insomnia
[2019-03-02] MEDS: RisperDAL PO SCH ×2 (09:20→21:19)
[2019-03-02] MEDS: MACROBID PO SCH ×2 (09:20→21:19)
[2019-03-02] MEDS: REMERON SOLUTAB PO SCH (21:20)
[2019-03-02] MEDS: DESYREL PO PRN (21:20)
[2019-03-02] MEDS: MELATONIN PO SCH (21:20)
[2019-03-03] MEDS: RisperDAL PO SCH ×2 (11:16→21:16)
[2019-03-03] MEDS: MACROBID PO SCH (11:16)
--- NOTE | 2019-03-03 20:11 | Progress Note ---
Subjective Date of service: 03/02/19 Principal diagnosis: Dementia with behavioral disturbance Subjective Comment: Patient continues to be agitated, disruptive and extremely aggressive. Requires PRNs and security personnel He is uncooperative with cares and refuses to take medications. He denies SI/HI/AVH/Paranoia. Orientation: place, person Affect: normal Mood: calm Thought Process: Disoriented Perceptions: none Speech: normal rate and pattern Concentration: focused Motor activity: normal Level of consciousness: alert Memory: Recent Impaired, Remote Impaired Sleep Symptoms: Insomnia Interaction: cooperative Objective - Criteria for Continued Treatment Criteria for Continued Treatment: Stablizing Level of Functioning, Improving Emotional/Socia - Objective Observation Participation Level: Moderate Assessment and Plan - Patient Problems (1) Delirium due to another medical condition Current Visit: Yes Status: Acute Plan to address problem: Due to the psychiatric conditions and required monitoring - the patient requires continued hospitalization. Will continue inpatient treatment to allow for medication adjustment and monitoring. Will continue q15 min safety checks. Will encourage the use of environmental modifications and non-pharmacologic approaches for the management of behavioral and psychological symptoms. Monitor for medication side effects. The patient will continue on medications for physical illnesses, and these will be closely monitored by the Hospitalist Continue intensive physical and occupational therapies. Monitor patient's mood, sleep, appetite, and behavior closely. Encourage patient to participate in individual and group therapeutic sessions on the [place]. Will provide a safe and therapeutic environment for patient. Will continue Risperidone to 1mg bid for delirium, psychosis and agitation Will continue Remeron 15mg qhs to help with mood, sleep and appetite (2) Aggressive behavior Current Visit: No Status: Inactive (3) Pyuria Current Visit: No Status: Inactive (4) Dementia with behavioral disturbance Current Visit: Yes Status: Acute Medications & Allergies - Medications Allergies/Adverse Reactions: Allergies No Known Allergies Allergy (Unverified 05/21/18 18:30) Home Medications: Home Medications Medication Instructions Recorded Confirmed Last Taken Type levoFLOXacin [Levaquin TAB] 500 mg PO QDAY #10 tablet 01/08/19 02/25/19 Unknown Rx Nitrofurantoin [place]/M-Cryst 100 mg PO Q12HR #14 capsule 02/24/19 02/25/19 Unknown Rx [Macrobid CAP] Active Medications: Generic Name Dose Route Start Last Admin Trade Name Freq PRN Reason Stop Dose Admin Diphenhydramine HCl 50 mg 02/27/19 09:30 02/28/19 22:55 Benadryl IM 50 mg Q6H PRN Administration agitation Divalproex Sodium 250 mg 02/28/19 14:00 03/03/19 14:[address] PO 250 mg TID IRINA Administration Haloperidol Lactate 5 mg 02/24/19 18:11 02/28/19 22:55 Haldol IM 5 mg Q6H PRN Administration Agitation Lorazepam 2 mg 02/27/19 20:23 02/28/19 01:01 Ativan IM 2 mg Q6H PRN Administration Agitation Melatonin 5 mg 02/24/19 22:00 03/02/19 21:20 Melatonin PO 5 mg QHS IRINA Administration Mirtazapine 15 mg 02/27/19 22:00 03/02/19 21:20 Remeron Solutab PO 15 mg QHS IRINA Administration Risperidone 1 mg 02/28/19 08:45 03/03/19 11:16 Risperdal PO 1 mg BID IRINA Administration Trazodone HCl 50 mg 02/24/19 18:12 03/02/19 21:20 Desyrel PO 50 mg QHS PRN Administration Insomnia
[2019-03-03] MEDS: DESYREL PO PRN (21:16)
[2019-03-03] MEDS: REMERON SOLUTAB PO SCH (21:16)
[2019-03-03] MEDS: MELATONIN PO SCH (21:16)
--- NOTE | 2019-03-04 09:33 | Progress Note ---
Subjective Date of service: 03/04/19 Principal diagnosis: Dementia with behavioral disturbance Subjective Comment: Patient is calm and cooperative. He sleeps and eats well. Compliant with meds with no reported or observed side effects. He denies SI/HI/AVH/Paranoia. Orientation: place, person Affect: normal Mood: calm Thought Process: logical Perceptions: none Speech: normal rate and pattern Concentration: focused Motor activity: normal Level of consciousness: alert Memory: Recent Impaired, Remote Impaired Sleep Symptoms: None Interaction: cooperative Objective - Criteria for Continued Treatment Criteria for Continued Treatment: Improving Level of Functioning, Stablizing Level of Functioning, Improving Emotional/Socia - Objective Observation Participation Level: Moderate Assessment and Plan - Patient Problems (1) Delirium due to another medical condition Current Visit: Yes Status: Acute Plan to address problem: Due to the psychiatric conditions and required monitoring - the patient requires continued hospitalization. Will continue inpatient treatment to allow for medication adjustment and monitoring. Will continue q15 min safety checks. Will encourage the use of environmental modifications and non-pharmacologic approaches for the management of behavioral and psychological symptoms. Monitor for medication side effects. The patient will continue on medications for physical illnesses, and these will be closely monitored by the Hospitalist Continue intensive physical and occupational therapies. Monitor patient's mood, sleep, appetite, and behavior closely. Encourage patient to participate in individual and group therapeutic sessions on the [place]. Will provide a safe and therapeutic environment for patient. Will continue Risperidone to 1mg bid for delirium, psychosis and agitation Will continue Remeron 15mg qhs to help with mood, sleep and appetite (2) Aggressive behavior Current Visit: No Status: Inactive (3) Pyuria Current Visit: No Status: Inactive (4) Dementia with behavioral disturbance Current Visit: Yes Status: Acute Medications & Allergies - Medications Allergies/Adverse Reactions: Allergies No Known Allergies Allergy (Unverified 05/21/18 18:30) Home Medications: Home Medications Medication Instructions Recorded Confirmed Last Taken Type levoFLOXacin [Levaquin TAB] 500 mg PO QDAY #10 tablet 01/08/19 02/25/19 Unknown Rx Nitrofurantoin [place]/M-Cryst 100 mg PO Q12HR #14 capsule 02/24/19 02/25/19 Unknown Rx [Macrobid CAP] Active Medications: Generic Name Dose Route Start Last Admin Trade Name Freq PRN Reason Stop Dose Admin Diphenhydramine HCl 50 mg 02/27/19 09:30 02/28/19 22:55 Benadryl IM 50 mg Q6H PRN Administration agitation Divalproex Sodium 250 mg 02/28/19 14:00 03/03/19 20:[address] PO 250 mg TID IRINA Administration Haloperidol Lactate 5 mg 02/24/19 18:11 02/28/19 22:55 Haldol IM 5 mg Q6H PRN Administration Agitation Lorazepam 2 mg 02/27/19 20:23 02/28/19 01:01 Ativan IM 2 mg Q6H PRN Administration Agitation Melatonin 5 mg 02/24/19 22:00 03/03/19 21:16 Melatonin PO 5 mg QHS IRINA Administration Mirtazapine 15 mg 02/27/19 22:00 03/03/19 21:16 Remeron Solutab PO 15 mg QHS IRINA Administration Risperidone 1 mg 02/28/19 08:45 03/03/19 21:16 Risperdal PO 1 mg BID IRINA Administration Trazodone HCl 50 mg 02/24/19 18:12 03/03/19 21:16 Desyrel PO 50 mg QHS PRN Administration Insomnia
[2019-03-04] MEDS: RisperDAL PO SCH ×2 (10:36→22:08)
[2019-03-04] MEDS: DESYREL PO PRN (22:08)
[2019-03-04] MEDS: REMERON SOLUTAB PO SCH (22:08)
[2019-03-04] MEDS: MELATONIN PO SCH (22:08)
[2019-03-05 02:58] VITALS: BP 113/69
--- NOTE | 2019-03-05 08:33 | Discharge Summary ---
Providers - Providers Date of Admission: 02/24/19 21:25 Date of discharge: 03/05/19 Attending physician: CONCHIS GOODMAN MD Primary care physician: [facility] Hospitalization Reason for admission: Aggression and inability to care for self Condition: Stable Allergies/Adverse Reactions: Allergies No Known Allergies Allergy (Unverified 05/21/18 18:30) Vital Signs: Last Vital Signs Temp 98.5 F 03/04/19 20:05 Pulse 98 H 03/04/19 20:05 Resp 18 03/04/19 20:05 BP 113/69 03/04/19 20:05 Pulse Ox 100 03/04/19 20:05 Last Lab: Laboratory Last Values WBC 6.0 K/mm3 (4.5-11.0) 02/27/19 08:01 RBC 4.62 M/mm3 (3.65-5.03) 02/27/19 08:01 Hgb 12.0 gm/dl (11.8-15.2) 02/27/19 08:01 Hct 37.4 % (35.5-45.6) 02/27/19 08:01 MCV 81 fl (84-94) L 02/27/19 08:01 MCH 26 pg (28-32) L 02/27/19 08:01 MCHC 32 % (32-34) 02/27/19 08:01 RDW 16.4 % (13.2-15.2) H 02/27/19 08:01 Plt Count 194 K/mm3 (140-440) 02/27/19 08:01 Lymph % (Auto) 41.0 % (13.4-35.0) H 02/27/19 08:01 [place] % (Auto) 14.2 % (0.0-7.3) H 02/27/19 08:01 Eos % (Auto) 2.4 % (0.0-4.3) 02/27/19 08:01 Baso % (Auto) 0.1 % (0.0-1.8) 02/27/19 08:01 Lymph # 2.4 K/mm3 (1.2-5.4) 02/27/19 08:01 [place] # 0.8 K/mm3 (0.0-0.8) 02/27/19 08:01 Eos # 0.1 K/mm3 (0.0-0.4) 02/27/19 08:01 Baso # 0.0 K/mm3 (0.0-0.1) 02/27/19 08:01 Seg Neutrophils % 42.3 % (40.0-70.0) 02/27/19 08:01 Seg Neutrophils # 2.5 K/mm3 (1.8-7.7) 02/27/19 08:01 Sodium 143 mmol/L (137-145) 02/27/19 08:01 Potassium 3.9 mmol/L (3.6-5.0) 02/27/19 08:01 Chloride 107.7 mmol/L (98-107) H 02/27/19 08:01 Carbon Dioxide 22 mmol/L (22-30) 02/27/19 08:01 17 mmol/L 02/27/19 08:01 BUN 16 mg/dL (9-20) 02/27/19 08:01 1.1 mg/dL (0.8-1.5) 02/27/19 08:01 Estimated GFR > 60 ml/min 02/27/19 08:01 15 % 02/27/19 08:01 Glucose 122 mg/dL (75-100) H 02/27/19 08:01 6.0 % (4-6) 02/26/19 06:24 Calcium 9.9 mg/dL (8.4-10.2) 02/27/19 08:01 Triglycerides 67 mg/dL (2-149) 02/26/19 06:24 Cholesterol 118 mg/dL (50-199) 02/26/19 06:24 61 mg/dL (50-130) 02/26/19 06:24 50 mg/dL (40-59) 02/26/19 06:24 2.36 % 02/26/19 06:24 Yellow (Yellow) 02/27/19 00:20 Cloudy (Clear) 02/27/19 00:20 6.0 (5.0-7.0) 02/27/19 00:20 Ur Specific [place] 1.012 (1.003-1.030) 02/27/19 00:20 100 mg/dl mg/dL (Negative) 02/27/19 00:20 Neg mg/dL (Negative) 02/27/19 00:20 Neg mg/dL (Negative) 02/27/19 00:20 Sm (Negative) 02/27/19 00:20 Neg (Negative) 02/27/19 00:20 Neg (Negative) 02/27/19 00:20 < 2.0 mg/dL (<2.0) 02/27/19 00:20 Ur Leukocyte Esterase Lg (Negative) 02/27/19 00:20 > 182.0 /HPF (0.0-6.0) H 02/27/19 00:20 13.0 /HPF (0.0-6.0) 02/27/19 00:20 U Epithel Cells (Auto) 1.0 /HPF (0-13.0) 02/27/19 00:20 Few /HPF 02/27/19 00:20 - Discharge Diagnoses (1) Delirium due to another medical condition Status: Acute (2) Aggressive behavior Status: Inactive (3) Pyuria Status: Inactive (4) Dementia with behavioral disturbance Status: Acute Core Measure Documentation - Palliative Care Palliative Care/ Comfort Measures: Not Applicable Exam - Constitutional Vitals: Temp Pulse Resp BP Pulse Ox 98.5 F 98 H 18 113/69 100 03/04/19 20:05 03/04/19 20:05 03/04/19 20:05 03/04/19 20:05 03/04/19 20:05 Plan Care Plan Goals: Cooperative with cares, compliant with treatment and remain aggression free. Plan of Treatment: Attend follow up appointments Health Concerns: Dementia Assessment: Dementia with behavioral disturbance Follow up with: NURSING[facility] [Primary Care Provider] - 7 Days Prescriptions: traZODone [Desyrel] 50 mg PO QHS PRN #30 tablet PRN Reason: Insomnia Melatonin [Melatonin 5MG TAB] 5 mg PO QHS #30 tablet Mirtazapine Solutab [Remeron 15mg Solutab] 15 mg PO QHS #30 tab.meghan Divalproex [Daiana Berumen] 250 mg PO TID #90 tablet risperiDONE [RisperDAL] 1 mg PO BID #60 tablet
[2019-03-05] MEDS: RisperDAL PO SCH (09:44)
== END 2019-03-05 16:15 | DRG 884 ==
LOC: UNDOADMIN 17:46 → 3A 17:46 → 5A 21:25
PROVIDERS: ADMIT Psychiatry & Neurology Psychiatry; ATTEND Psychiatry & Neurology Psychiatry
DX: F01.51 Vascular dementia, unspecified severity, with behavioral disturbance (principal); F05 Delirium due to known physiological condition; G92 Toxic encephalopathy; N39.0 Urinary tract infection, site not specified; I25.10 Atherosclerotic heart disease of native coronary artery without angina pectoris; F31.9 Bipolar disorder, unspecified
CPT/HCPCS: 36415; 70450; 80048; 80061; 80076; 80164; 80320; 81001; 82140; 82550; 83036; 83735; 85025; 85027; 87086; 93005; 93010; G0378; G0480; J1200; J1630; J2060; J3486

== ENCOUNTER 2019-03-11 11:40 | Emergency (ER) | payer MEDICARE ==
[2019-03-11] MEDS ORDERED: ATIVAN IM PRN (12:45)
[2019-03-11] MEDS ORDERED: HALDOL IM PRN (12:45)
--- NOTE | 2019-03-11 12:46 | Emergency Department Report ---
ED General Adult HPI - General Chief complaint: Psych Stated complaint: PSYCH EVAL Time Seen by Provider: 03/11/19 12:29 Source: patient, EMS (ems notes not available at time of chart dictation), RN notes reviewed, old records reviewed Mode of arrival: Stretcher Limitations: Other (patient is demented. Patient is a poor historian.) - History of Present Illness Initial comments: This is a 69-year-old gentleman. I have evaluated this patient in the past. Patient presents from local prison for evaluation of aggressive behavior. Primary care doctors are Dr. Soler and Dr. Templeton. Past medical history includes chronic pain, stroke, vascular dementia, question cirrhosis, possible bipolar disorder. I evaluated this patient approximately 2 weeks ago for inappropriate behavior. Patient had extensive workup in the ER, including CT scan of the brain, EKG, appropriate screening laboratory studies. Patient found to have pyuria, and started on Macrobid antibiotic. Culture ultimately grew out Proteus organism, sensitive to multiple agents. Today, the patient is sent to the ER from his prison for psychiatric evaluation. Apparently, the patient has been threatening to staff. In the emergency room, the patient is pleasant, calm and cooperative. He denies physical pain to this provider. He denies homicidality and suicidality. He indicates no hallucinations. He has no complaints at this time. He is asking to eat. He presents to the emergency room with a 1013 from his physician. However, this 1013 signature does not have a date or time next signature section. - Related Data Previous Rx's Medication Instructions Recorded Last Taken Type Divalproex Dr [Depcrystal Dr] 250 mg PO TID #90 tablet 03/05/19 Unknown Rx Melatonin [Melatonin 5MG TAB] 5 mg PO QHS #30 tablet 03/05/19 Unknown Rx Mirtazapine Solutab [Remeron 15mg 15 mg PO QHS #30 tab.rapdis 03/05/19 Unknown R x Solutab] risperiDONE [RisperDAL] 1 mg PO BID #60 tablet 03/05/19 Unknown Rx traZODone [Desyrel] 50 mg PO QHS PRN #30 tablet 03/05/19 Unknown Rx Sulfamethoxazole/Trimethoprim 1 each PO BID #9 tablet 03/11/19 Unknown Rx [Bactrim 400-80 mg Tablet] Allergies Allergy/AdvReac Type Severity Reaction Status Date / Time No Known Allergies Allergy Unverified 05/21/18 18:30 ED Review of Systems ROS: Stated complaint: PSYCH EVAL Other details as noted in HPI Comment: All other systems reviewed and negative ED Past Medical Hx - Past Medical History Previous Medical History?: Yes Hx Hypertension: Yes Hx Psychiatric Treatment: Yes (Bipolar) Additional medical history: Cirrhosis of liver, BPH, Psoriasis, Vitamin deficiency, ototo, myopathy, dementia - Social History Smoking Status: Never Smoker - Medications Home Medications: Home Medications Medication Instructions Recorded Confirmed Last Taken Type Divalproex Dr [Depakote Dr] 250 mg PO TID #90 tablet 03/05/19 Unknown Rx Melatonin [Melatonin 5MG TAB] 5 mg PO QHS #30 tablet 03/05/19 Unknown Rx Mirtazapine Solutab [Remeron 15mg 15 mg PO QHS #30 tab.rapdis 03/05/19 Unknown Rx Solutab] risperiDONE [RisperDAL] 1 mg PO BID #60 tablet 03/05/19 Unknown Rx traZODone [Desyrel] 50 mg PO QHS PRN #30 tablet 03/05/19 Unknown Rx Sulfamethoxazole/Trimethoprim 1 each PO BID #9 tablet 03/11/19 Unknown Rx [Bactrim 400-80 mg Tablet] ED Physical Exam - General Limitations: No Limitations, Other (patient demented. Patient is a poor historian) General appearance: alert, in no apparent distress - Head Head exam: Present: atraumatic, normocephalic - Eye Eye exam: Present: normal appearance, PERRL, EOMI, other (visual acuity intact to finger counting and color perception at a close distance). Absent: nystagmus - ENT ENT exam: Present: normal exam, normal orophraynx, mucous membranes moist, normal external ear exam - Neck Neck exam: Present: normal inspection, full ROM. Absent: tenderness, meningismus - Respiratory Respiratory exam: Present: normal lung sounds bilaterally. Absent: respiratory distress - Cardiovascular Cardiovascular Exam: Present: regular rate, normal rhythm, normal heart sounds. Absent: bradycardia, tachycardia, irregular rhythm, systolic murmur, diastolic murmur, rubs, gallop - GI/Abdominal GI/Abdominal exam: Present: soft. Absent: distended, tenderness, guarding, rebound, rigid, pulsatile mass - Rectal Rectal exam: Present: deferred - Extremities Exam Extremities exam: Present: normal inspection, full ROM, other (2+ pulses noted in the bilateral upper, lower extremities. Compartments soft. No long bony tenderness. The pelvis is stable.). Absent: calf tenderness - Back Exam Back exam: Present: normal inspection, full ROM. Absent: tenderness, CVA t enderness (R), CVA tenderness (L), paraspinal tenderness, vertebral tenderness - Neurological Exam Neurological exam: Present: alert (the patient is alert to name. The patient follows commands.), other (Extraocular movements intact. Tongue midline. No facial droop. Facial sensation intact to light touch in the V1, V2, V3 distribution bilaterally. 5 and 5 strength in 4 extremities.. Sensation is intact to light touch in 4 extremities.). Absent: motor sensory deficit - Psychiatric Psychiatric exam: Present: flat affect. Absent: homicidal ideation, suicidal ideation - Skin Skin exam: Present: warm, dry, intact, normal color. Absent: rash ED Course Vital Signs 03/11/19 03/11/19 12:05 13:45 Temperature 98.2 F 98.1 F Pulse Rate 100 H 110 H Respiratory 16 24 Rate Blood Pressure 121/70 136/82 [Left] O2 Sat by Pulse 95 100 Oximetry - Reevaluation(s) Reevaluation #1: 03/11/19 14:35 Differential diagnosis, including but not limited to: Dementia, psychosis, bi polar, medical clearance for placement, urinary tract infection Assessment and plan: 69-year-old gentleman, now pleasant, calm and cooperative, nonfocal motor exam, physical exam unremarkable, and in no acute distress. He is not homicidal, suicidal, or aggressive towards his provider or his staff. Patient was placed on hold for dementia, screening laboratory studies including urinalysis ordered, CT scan of the brain was unremarkable a few weeks ago. Psychiatric consultation has been requested, K spasmic consultation has been requested. Once initial laboratory studies and urinalysis have resulted, will reengage with psychiatry in case management for proper placement. Suspect documented findings from prison are likely underlying expected menstrual history the patient's underlying bipolar disorder and presumed vascular dementia. Reevaluation #2: 03/11/19 16:17 Patient reassessed multiple times. Urinalysis suggests urinary tract infection. No tachycardia noted on my direct examination. Screening laboratory studies otherwise unremarkable. Patient seen in conjunction with the psychiatry team, and we both agree that patient will not benefit from inpatient psychiatric hospitalization. Culture results were reviewed from his previous workup, he'll be started on Bactrim. Patient does not meet criteria for inpatient medical hospitalization at this time. At this point time, he does not meet criteria for psychiatric hospitalization. Patient to be discharged back to prison. ED Medical Decision Making - Lab Data Result diagrams: 03/11/19 14:03 03/11/19 14:03 Vital Signs 03/11/19 12:05 Temperature 98.2 F Pulse Rate 100 H Respiratory 16 Rate Blood Pressure 121/70 [Left] O2 Sat by Pulse 95 Oximetry Lab Results 03/11/19 Range/Units 14:03 WBC 5.0 (4.5-11.0) K/mm3 RBC 4.17 (3.65-5.03) M/mm3 Hgb 10.7 L (11.8-15.2) gm/dl Hct 33.9 L (35.5-45.6) % MCV 81 L (84-94) fl MCH 26 L (28-32) pg MCHC 32 (32-34) % RDW 16.7 H (13.2-15.2) % Plt Count 268 (140-440) K/mm3 Vital Signs 03/11/19 03/11/19 12:05 13:45 Temperature 98.2 F 98.1 F Pulse Rate 100 H 110 H Respiratory 16 24 Rate Blood Pressure 121/70 136/82 [Left] O2 Sat by Pulse 95 100 Oximetry Lab Results 03/11/19 03/11/19 03/11/19 Range/Units 14:03 14:03 14:03 WBC 5.0 (4.5-11.0) K/mm3 RBC 4.17 (3.65-5.03) M/mm3 Hgb 10.7 L (11.8-15.2) gm/dl Hct 33.9 L (35.5-45.6) % MCV 81 L (84-94) fl MCH 26 L (28-32) pg MCHC 32 (32-34) % RDW 16.7 H (13.2-15.2) % Plt Count 268 (140-440) K/mm3 Sodium 138 (137-145) mmol/L Potassium 4.5 (3.6-5.0) mmol/L Chloride 101.7 (98-107) mmol/L Carbon Dioxide 25 (22-30) mmol/L Anion Gap 16 mmol/L BUN 13 (9-20) mg/dL Creatinine 0.8 (0.8-1.5) mg/dL Estimated GFR > 60 ml/min BUN/Creatinine Ratio 16 % Glucose 91 (75-100) mg/dL Calcium 9.6 (8.4-10.2) mg/dL Magnesium 2.00 (1.7-2.3) mg/dL Total Bilirubin < 0.20 (0.1-1.2) mg/dL Direct Bilirubin < 0.2 (0-0.2) mg/dL AST 16 (5-40) units/L ALT 9 (7-56) units/L Alkaline Phosphatase 102 (35-129) units/L Ammonia 45.0 (25-60) umol/L Total Creatine Kinase 121 (55-170) units/L Total Protein 8.3 H (6.3-8.2) g/dL Albumin 3.8 L (3.9-5) g/dL Albumin/Globulin Ratio 0.8 % Urine Color (Yellow) Urine Turbidity (Clear) Urine pH (5.0-7.0) Ur Specific [place] (1.003-1.030) Urine Protein (Negative) mg/dL Urine Glucose (UA) (Negative) mg/dL Urine Ketones (Negative) mg/dL Urine Blood (Negative) Urine Nitrite (Negative) Urine Bilirubin (Negative) Urine Urobilinogen (<2.0) mg/dL Ur Leukocyte Esterase (Negative) Urine WBC (Auto) (0.0-6.0) /HPF Urine RBC (Auto) (0.0-6.0) /HPF U Epithel Cells (Auto) (0-13.0) /HPF Urine Bacteria (Auto) (Negative) /HPF Urine WBC Clumps /HPF Hyaline Casts /LPF Urine Yeast (Budding) /HPF Salicylates (2.8-20.0) mg/dL Urine Opiates Screen Urine Methadone Screen Acetaminophen (10.0-30.0) ug/mL Ur Barbiturates Screen Valproic Acid (50-100) ug/mL Ur Phencyclidine Scrn Ur Amphetamines Screen U Benzodiazepines Scrn Urine Cocaine Screen U Marijuana (THC) Screen Drugs of Abuse Note Plasma/Serum Alcohol (0-0.07) % 03/11/19 03/11/19 03/11/19 Range/Units 14:03 14:03 14:03 WBC (4.5-11.0) K/mm3 RBC (3.65-5.03) M/mm3 Hgb (11.8-15.2) gm/dl Hct (35.5-45.6) % MCV (84-94) fl MCH (28-32) pg MCHC (32-34) % RDW (13.2-15.2) % Plt Count (140-440) K/mm3 Sodium (137-145) mmol/L Potassium (3.6-5.0) mmol/L Chloride (98-107) mmol/L Carbon Dioxide (22-30) mmol/L Anion Gap mmol/L BUN (9-20) mg/dL Creatinine (0.8-1.5) mg/dL Estimated GFR ml/min BUN/Creatinine Ratio % Glucose (75-100) mg/dL Calcium (8.4-10.2) mg/dL Magnesium (1.7-2.3) mg/dL Total Bilirubin (0.1-1.2) mg/dL Direct Bilirubin (0-0.2) mg/dL AST (5-40) units/L ALT (7-56) units/L Alkaline Phosphatase (35-129) units/L Ammonia (25-60) umol/L Total Creatine Kinase (55-170) units/L Total Protein (6.3-8.2) g/dL Albumin (3.9-5) g/dL Albumin/Globulin Ratio % Urine Color (Yellow) Urine Turbidity (Clear) Urine pH (5.0-7.0) Ur Specific [place] (1.003-1.030) Urine Protein (Negative) mg/dL Urine Glucose (UA) (Negative) mg/dL Urine Ketones (Negative) mg/dL Urine Blood (Negative) Urine Nitrite (Negative) Urine Bilirubin (Negative) Urine Urobilinogen (<2.0) mg/dL Ur Leukocyte Esterase (Negative) Urine WBC (Auto) (0.0-6.0) /HPF Urine RBC (Auto) (0.0-6.0) /HPF U Epithel Cells (Auto) (0-13.0) /HPF Urine Bacteria (Auto) (Negative) /HPF Urine WBC Clumps /HPF Hyaline Casts /LPF Urine Yeast (Budding) /HPF Salicylates < 0.3 L (2.8-20.0) mg/dL Urine Opiates Screen Urine Methadone Screen Acetaminophen < 5.0 L (10.0-30.0) ug/mL Ur Barbiturates Screen Valproic Acid 43.2 L (50-100) ug/mL Ur Phencyclidine Scrn Ur Amphetamines Screen U Benzodiazepines Scrn Urine Cocaine Screen U Marijuana (THC) Screen Drugs of Abuse Note Plasma/Serum Alcohol < 0.01 (0-0.07) % 03/11/19 03/11/19 Range/Units Unknown Unknown WBC (4.5-11.0) K/mm3 RBC (3.65-5.03) M/mm3 Hgb (11.8-15.2) gm/dl Hct (35.5-45.6) % MCV (84-94) fl MCH (28-32) pg MCHC (32-34) % RDW (13.2-15.2) % Plt Count (140-440) K/mm3 Sodium (137-145) mmol/L Potassium (3.6-5.0) mmol/L Chloride (98-107) mmol/L Carbon Dioxide (22-30) mmol/L Anion Gap mmol/L BUN (9-20) mg/dL Creatinine (0.8-1.5) mg/dL Estimated GFR ml/min BUN/Creatinine Ratio % Glucose (75-100) mg/dL Calcium (8.4-10.2) mg/dL Magnesium (1.7-2.3) mg/dL Total Bilirubin (0.1-1.2) mg/dL Direct Bilirubin (0-0.2) mg/dL AST (5-40) units/L ALT (7-56) units/L Alkaline Phosphatase (35-129) units/L Ammonia (25-60) umol/L Total Creatine Kinase (55-170) units/L Total Protein (6.3-8.2) g/dL Albumin (3.9-5) g/dL Albumin/Globulin Ratio % Urine Color Yellow (Yellow) Urine Turbidity Cloudy (Clear) Urine pH 7.0 (5.0-7.0) Ur Specific [place] 1.005 (1.003-1.030) Urine Protein <15 mg/dl (Negative) mg/dL Urine Glucose (UA) Neg (Negative) mg/dL Urine Ketones Neg (Negative) mg/dL Urine Blood Sm (Negative) Urine Nitrite Neg (Negative) Urine Bilirubin Neg (Negative) Urine Urobilinogen < 2.0 (<2.0) mg/dL Ur Leukocyte Esterase Lg (Negative) Urine WBC (Auto) > 182.0 H (0.0-6.0) /HPF Urine RBC (Auto) 7.0 (0.0-6.0) /HPF U Epithel Cells (Auto) 3.0 (0-13.0) /HPF Urine Bacteria (Auto) 1+ (Negative) /HPF Urine WBC Clumps 2+ /HPF Hyaline Casts 2 /LPF Urine Yeast (Budding) 2+ /HPF Salicylates (2.8-20.0) mg/dL Urine Opiates Screen Presumptive negative Urine Methadone Screen Presumptive negative Acetaminophen (10.0-30.0) ug/mL Ur Barbiturates Screen Presumptive negative Valproic Acid (50-100) ug/mL Ur Phencyclidine Scrn Presumptive negative Ur Amphetamines Screen Presumptive negative U Benzodiazepines Scrn Presumptive negative Urine Cocaine Screen Presumptive negative U Marijuana (THC) Screen Presumptive negative Drugs of Abuse Note Disclamer Plasma/Serum Alcohol (0-0.07) % - EKG Data -: EKG Interpreted by Mi EKG shows normal: sinus rhythm Rate: normal - EKG Data 03/11/19 14:37 This is a sinus rhythm, 84 bpm, borderline leftward axis, QTC within normal [place] its, motion artifact, no endorse chest pain, the EKG is abnormal, the EKG is not consistent with ST elevation myocardial infarction. - Radiology Data Radiology results: report reviewed, image reviewed CT scan of the brain from previous visit reviewed and appreciated. Critical care attestation.: If time is entered above; I have spent that time in minutes in the direct care of this critically ill patient, excluding procedure time. ED Disposition Clinical Impression: Dementia with behavioral disturbance Qualifiers: Dementia type: unspecified type Qualified Code(s): F03.91 - Unspecified dementia with behavioral disturbance UTI (urinary tract infection) Qualifiers: Urinary tract infection type: site unspecified Hematuria presence: without hematuria Qualified Code(s): N39.0 - Urinary tract infection, site not specified Disposition: DC/TX-70 ANOTHER TYPE HLTHCARE Is pt being admited?: No Does the pt Need Aspirin: No Condition: Stable Additional Instructions: Cultures were sent today, and results will be available in the next 3-5 days. Take the antibiotics as directed, and please have your primary care doctor contact the medical records department to obtain culture results. Please follow-up with your primary care doctor within the next 3-5 days. Return to the emergency room right away with projectile vomiting, change in mental status, confusion, inability to tolerate liquid feeds, it, worsened or different symptoms not present on the initial emergency room evaluation. Prescriptions: Sulfamethoxazole/Trimethoprim [Bactrim 400-80 mg Tablet] 1 each PO BID #9 tablet Referrals: NELLIE SOLER MD [Primary Care Provider] - 3-5 Days
[2019-03-11 14:20] LABS: Hematocrit 33.9 % (35.5-45.6); Hemoglobin 10.7 gm/dl (11.8-15.2); Mean Corpuscular HGB Conc 32 % (32-34); Mean Corpuscular Volume 81 fl (84-94); Platelet Count 268 K/mm3 (140-440); Red Blood Count 4.17 M/mm3 (3.65-5.03); Red Cell Distribution Width 16.7 % (13.2-15.2)
[2019-03-11 14:38] LABS: Alanine Aminotransferase 9 units/L (7-56); Albumin 3.8 g/dL (3.9-5); BUN/Creatinine Ratio 16; Blood Urea Nitrogen 13 mg/dL (9-20); Calcium 9.6 mg/dL (8.4-10.2); Hemolysis Index 0
[2019-03-11 14:42] LABS: Bilirubin,Direct < 0.2 mg/dL (0-0.2)
[2019-03-11 15:11] VITALS: BP 136/82
[2019-03-11 15:16] LABS: Bacteria,Urine 1+ /HPF (Negative); Bilirubin,Urine NEG (Negative); Blood,Urine SM (Negative); Color,Urine Yellow (Yellow); Hyaline Casts,Urine 2 /LPF; Protein,Urine <15 mg/dL mg/dL (Negative); Urobilinogen,Urine < 2.0 mg/dL (<2.0)
[2019-03-11 15:17] LABS: WBC,Urine > 182.0 /HPF (0.0-6.0)
[2019-03-11 15:20] LABS: Amphetamine Screen,Urine PRESUMPTIVE NEGATIVE; Benzodiazepines Screen,Urine PRESUMPTIVE NEGATIVE; Cannabinoid Screen,Urine PRESUMPTIVE NEGATIVE; Cocaine Screen,Urine PRESUMPTIVE NEGATIVE; Methadone Screen,Urine PRESUMPTIVE NEGATIVE; Opiate Screen,Urine PRESUMPTIVE NEGATIVE
[2019-03-11] MEDS ORDERED: BACTRIM DS PO ONE (15:28)
== END 2019-03-11 19:31 | disposition other institution (70) ==
LOC: ED 11:40 → EEVIPCON 11:40 → ED 19:31
DX: F03.91 Unspecified dementia, unspecified severity, with behavioral disturbance (principal); N39.0 Urinary tract infection, site not specified; F31.9 Bipolar disorder, unspecified; I10 Essential (primary) hypertension; Z79.899 Other long term (current) drug therapy
CPT/HCPCS: 36415; 80048; 80076; 80164; 80307; 80320; 81001; 82140; 82550; 83735; 85027; 87086; 93005; 93010; 99285; G0480